=== PATIENT | male | born 1975 | race Caucasian/White ===

== ENCOUNTER 2016-11-05 07:50 | Day surgery (SDC) | payer OTHER ==
--- NOTE | 2016-10-28 17:49 | HP ---
CC: Dr. Medina at [facility] PREOPERATIVE HISTORY AND PHYSICAL: DATE OF ADMISSION: This patient is scheduled for same day surgery admission by Dr. Medina on 11/05/16. DATE OF PREOPERATIVE HISTORY AND PHYSICAL EXAM: 10/28/16. ATTENDING SURGEON: Dr. Steven Medina* (dictated by Quang Elizabeth NP). CHIEF COMPLAINT: Left inguinal hernia. HISTORY OF PRESENT ILLNESS: The patient is a 40-year-old male recently evaluated by Dr. Medina for a left inguinal hernia as well as an umbilical hernia. The patient reports that he has symptoms from Giardia 2 years ago, which led to colonoscopy and a diagnosis of diverticulosis as well. Recently, he had symptoms of pain in the left lower quadrant and a CAT scan of the abdomen was performed and he was diagnosed with 2 hernias; one in the left inguinal region and one in the umbilicus. He notes that he is generally very physically active, but he is avoiding exercise due to the pain in the left groin that is exacerbated by strenuous activity and even by walking upstairs. He denies any dysuria; he does have a history of irritable bowel syndrome and stools can be irregular, alternating between formed and loose and he is currently on a medication called Viberzi, which is an antispasmodic. He denies any blood or mucous in the stools. He denies any fevers or chills. He has a good appetite and has not noticed any weight loss. Dr. Medina examined the patient and reviewed the findings with him and has recommended laparoscopic left inguinal hernia repair with mesh and a simultaneous repair of the umbilical hernia. Dr. Medina described the nature of the surgical procedure the relevant risks, and benefits and the rationale for the procedure and today I reviewed the expected postoperative care and recovery. The patient has had a chance to ask questions and stated that he understands the information and is satisfied with the answers given to his questions. He will sign surgical consent on the day of surgery. PAST MEDICAL HISTORY: Significant for irritable bowel syndrome and diverticulosis; exercise-induced asthma, and multiple environmental allergies. PAST SURGICAL HISTORY: Repair of left Achilles tendon; right shoulder surgery for torn labrum. MEDICATIONS: 1. Viberzi 100 mg 1 tablet daily with food. 2. Escitalopram 20 mg 1 tablet daily at bedtime. 3. Nasonex 50 mcg per actuation 2 sprays in each nostril p.r.n. 4. ProAir inhaler 2 puffs every 4 hours p.r.n. 5. QVAR 80 mcg 2 puffs daily p.r.n. ALLERGIES: AMOXICILLIN, ERYTHROMYCIN, CECLOR, PEDIAZOLE and PENICILLIN, all cause hives and throat swelling. PREDNISONE cause hypertension. FAMILY HISTORY: Father alive at age 76 with pacemaker. Mother alive and well. No known family history of anesthesia complications, bleeding tendencies or clotting disorders. 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 He is active with exercising. REVIEW OF SYSTEMS: Constitutional: He denies any changes in his weight or denies any fever or chills. Cardiovascular: Denies chest pain, pressure, or palpitations. Respiratory: Denies shortness of breath or chronic cough. GI: He has a history of irritable bowel syndrome and diverticulosis and Giardia. Genitourinary: Denies any dysuria or history of kidney stones. He denies any previous anesthesia complications. He denies any bleeding tendencies and has never received a blood transfusion. He denies any history of deep vein thrombosis or pulmonary embolism. PHYSICAL EXAMINATION GENERAL SURVEY: The patient is a 40-year-old male, well developed, well nourished, in no acute distress. VITAL SIGNS: Height 70 inches, weight 205 pounds, body mass index 29.4. Blood pressure 114/78, pulse 78 and regular, respiratory rate 16, temperature 97.4 tympanic. HEENT: Benign. NECK: Supple. No cervical lymphadenopathy. No thyromegaly. BACK: No CVA tenderness. LUNGS: Breath sounds bilaterally clear and equal. HEART: Regular rate and rhythm. No murmurs or rubs appreciated. ABDOMEN: Active bowel sounds. No surgical scars. Soft and nondistended. Mildly tender in the left lower quadrant. No guarding or rebound tenderness. No obvious masses or organomegaly. 1 cm umbilical hernia without any tenderness. Inguinal exam as done by Dr. Medina revealed a reducible left inguinal hernia. No right inguinal hernia. GENITALIA: Exam is deferred. RECTAL: Exam is deferred. EXTREMITIES: Warm without edema or skin ulceration. NEUROLOGIC: Alert and oriented x3, steady gait. SKIN: Warm, dry, intact. IMPRESSION: 1. Left inguinal hernia. 2. Umbilical hernia. PLAN: Same day surgery admission to Dr. Medina' service on 11/05/16, for laparoscopic repair of left inguinal hernia and simultaneous repair of umbilical hernia. QUANG ELIZABETH, OVERHEAD WORKER [id number] #: [id number] MTDNilson
[~2016-11-05 07:50] MED LIST: Buffered Lidocaine 0.9% SYRIN* 5 ML/SYR SYRINGE INTRADERM ONE; Buffered Lidocaine 0.9% SYRIN* 5 ML/SYR SYRINGE ONE; Levofloxacin 750 MG IVPREMIX(* 750 MG/150 ML BAG ONE
[2016-11-05] MEDS ORDERED: Bupivacaine 0.5% W/EPI SDV* 10 ML VIAL INJ ONE (09:37)
[2016-11-05] MEDS ORDERED: Midazolam* 1 MG/ML 2 ML VIAL (2 MG) ONE (11:19)
[2016-11-05] MEDS ORDERED: Cisatracurium* 2 MG/ML MDV 5 ML ONE (11:19)
[2016-11-05] MEDS ORDERED: fentaNYL* 50 MCG/ML 2 ML VIAL (100 MCG VIAL) ONE ×2 (11:20→12:49)
[2016-11-05] MEDS ORDERED: Propofol* 10 MG/ML 20 ML BTL IV PUSH ONE (13:04)
[2016-11-05] MEDS ORDERED: Lidocaine 2% PF * 5 ML VIAL ONE (13:04)
[2016-11-05] MEDS ORDERED: Dexamethasone IV* 4 MG/ML 1 ML (4 MG) ONE (13:04)
[2016-11-05] MEDS ORDERED: Ondansetron INJ* 2 MG/ML VIAL ONE (13:04)
[2016-11-05] MEDS ORDERED: Succinylcholine* 20 MG/ML 10 ML VIAL ONE (13:04)
[2016-11-05] MEDS ORDERED: EPHEDrine (Pressors)* 50 MG/ML VIAL ONE ×2 (13:28→13:34)
[2016-11-05] MEDS ORDERED: Glycopyrrolate IV* 0.2 MG/ML 1 ML VIAL ONE (13:34)
[2016-11-05] MEDS ORDERED: Ketorolac INJ* 30 MG/ML 1 ML VIAL IV PRN (13:49)
[2016-11-05] MEDS ORDERED: fentaNYL* 50 MCG/ML 2 ML VIAL (100 MCG VIAL) IV PRN (13:49)
[2016-11-05] MEDS ORDERED: HYDROmorphone* 1 MG/ML 1 ML SYR IV PRN (13:49)
[2016-11-05] MEDS ORDERED: oxyCODONE/Acetamin 5/325 MG* TAB PO PRN (14:13)
[2016-11-05] MEDS ORDERED: Ketorolac INJ* 30 MG/ML 1 ML VIAL ONE (14:59)
[2016-11-05 16:34] VITALS: BP 126/83
--- NOTE | 2016-11-06 12:37 | OP ---
CC: Cas Teran MD * DATE OF OPERATION: 11/05/16 - [facility] DATE OF : 79 SURGEON: Steven Medina MD LACE WEAVER: EL Carrillo ANESTHESIOLOGIST: Dr. Tanner. ANESTHESIA: General endotracheal. PRE-OP DIAGNOSES: Left inguinal hernia and umbilical hernia. POST-OP DIAGNOSES: Left inguinal hernia and umbilical hernia. OPERATIVE PROCEDURE: Laparoscopic repair of left inguinal hernia with mesh and open repair of umbilical hernia. ESTIMATED BLOOD LOSS: Minimal. IV FLUIDS: Crystalloid. SPECIMEN: None. DRAINS: None. COMPLICATIONS: None. COUNTS: The instrument, needle, and sponge counts were correct. DESCRIPTION OF PROCEDURE: The patient was brought to the operating room and placed on the table supine. Sequential compression devices were placed on both lower extremities. General anesthesia was administered. A Gerard catheter was placed. He was positioned and padded appropriately and received appropriate intravenous antibiotics. Time-out was performed. Local anesthetic was infiltrated into the skin and subcutaneous tissues prior to making its incision. A curvilinear infraumbilical incision was created and subcutaneous tissues were divided and the anterior rectus abdominis fascia was identified to the left of midline and incised transversely. The underlying muscles retracted laterally and the preperitoneal balloon dissector was positioned down to the level of the pubic symphysis. It was insufflated under direct visualization and then removed and replaced with a 12 mm blunt port. Insufflation of the preperitoneal space was achieved to a pressure of 15 mmHg. Under direct visualization, two 5 mm trocars were placed in the lower midline. Dissection proceeded from the midline laterally identifying the pubis symphysis , Brandon's ligament, and inferior epigastric vessels which were preserved anteriorly. There was no direct inguinal hernia identified. There was a indirect inguinal hernia sac which was identified and this was elevated. Cord structures were freed from it. The sac was allowed to retract. Dissection proceeded laterally to the anterior superior iliac spine. After completing the dissection, the repair was performed with the Bard 3D Max large size mesh for left-sided repair. The mesh was placed into the preperitoneal space and positioned to cover the direct, indirect, and femoral spaces. It was secured with the CapSure tacker at the Brandon's ligament at the pubic tubercle and the mesh was held out laterally as the preperitoneal space was allowed to desufflate to assure that the mesh was properly positioned. The ports were then removed. The infraumbilical site was closed with 0 Polysorb in interrupted fashion. Next, the umbilical hernia was addressed. The umbilical stalk was dissected free from the anterior abdominal wall. A 1 cm hernia was identified and the fascial edges were cleaned. The closure was performed with a 0 Ti-Cron suture in interrupted fashion. Subsequently, a 3-0 Polysorb was used to reapproximate the umbilical stalk to the anterior abdominal wall and the skin incisions were closed with 4-0 Monocryl. The patient tolerated the procedure well, was extubated and transferred to Recovery in stable condition. [id number]/CPS #: [id number] NATE
== END 2016-11-05 16:37 | disposition home or self-care (01) ==
LOC: OR 07:50
PROVIDERS: ATTEND Surgery
DX: K40.90 Unilateral inguinal hernia, without obstruction or gangrene, not specified as recurrent (principal); K42.9 Umbilical hernia without obstruction or gangrene; J45.909 Unspecified asthma, uncomplicated; F41.8 Other specified anxiety disorders
CPT/HCPCS: C1776; C1781; J0330; J1100; J1885; J2250; J2405; J2704; J3010

== ENCOUNTER 2018-10-20 10:53 | Emergency (ER) | payer OTHER ==
--- NOTE | 2018-10-20 12:25 | ED ---
Complex/Multi-Sys Presentation - HPI Summary HPI Summary: This patient is a 42 year old M presenting to [facility] accompanied by parents with a chief complaint of sore throat since this morning. Pt reports silent reflux, congestion in nose, ear fullness, pain, cough, sore throat, swelling and white spots on back of throat. States he woke up feeling like his throat was swollen and he had SOB but that has improved over time. Also has L ear fullness. Pt denies fever. Pt took inhaler which did not alleviate symptoms. Per triage, the patient rates the pain 4/10 in severity, sharp, located in throat, worse w swallowing. - History Of Current Complaint Chief Complaint: EDThroatPain Time Seen by Provider: 10/20/18 12:10 Hx Obtained From: Patient Onset/Duration: Sudden Onset, Lasting Hours Timing: Constant, Hours Severity Currently: Moderate Severity Initially: Moderate Associated Signs And Symptoms: Positive: SOB, Cough, Other - Pos - Sore throat, swelling and white spots on back of throat, silent reflux, congestion in nose, ear fullness - Allergies/Home Medications Allergies/Adverse Reactions: Allergies Allergy/AdvReac Type Severity Reaction Status Date / Time amoxicillin Allergy Severe Hives/Diff. Verified 10/20/18 11:00 Breathing/I tching cefaclor [From [facility]] Allergy Severe Hives/Diff. Verified 10/20/18 11:00 Breathing/I tching erythromycin base Allergy Severe Hives/Diff. Verified 10/20/18 11:00 Breathing/I tching Penicillins Allergy Severe Hives/Diff. Verified 10/20/18 11:00 Breathing/I tching prednisone Allergy Intermediate Tachycardia Verified 10/20/18 11:00 Home Medications: Home Medications Albuterol HFA INHALER* [Ventolin HFA Inhaler*] 1 puff INH Q4H PRN 10/20/18 [ History Confirmed 10/20/18] Omeprazole CAP (NF) [Prilosec CAP* 20 MG] 20 mg PO DAILY 10/20/18 [History Confirmed 10/20/18] Vortioxetine (NF) [Trintellix (NF)] 10 mg PO DAILY 10/20/18 [History Confirmed 10/20/18] PMH/Surg Hx/FS Hx/Imm Hx Endocrine/Hematology History: Denies: Hx Diabetes Cardiovascular History: Denies: Hx Hypertension Respiratory History: Reports: Hx Asthma - sports-induced, has daily inhaler and prn inhaler GI History: Reports: Hx Irritable Bowel - hx of, stated in select visit hx, take daily medication, Other GI Disorders - diverticulosis, takes daily medication and diet modification History: Denies: Hx Renal Disease Musculoskeletal History: Reports: Hx Tendonitis - left achilles tendonitis, had repair Sensory History: Reports: Hx Contacts or Glasses - reading glasses Denies: Hx Hearing Aid Opthamlomology History: Reports: Hx Contacts or Glasses - reading glasses Psychiatric History: Reports: Hx Anxiety - controlled with medication, Hx Depression - controlled with medication - Surgical History Surgery Procedure, Year, and Place: achilles tendon L foot lengthened;. R shoulder to be repaired Hx Anesthesia Reactions: No Infectious Disease History: No Infectious Disease History: Denies: History Other Infectious Disease, Traveled Outside the in Last 30 Days - Family History Known Family History: Negative: Cardiac Disease, Hypertension, Diabetes - Social History Alcohol Use: None Hx Substance Use: No Substance Use Type: Reports: None Hx Tobacco Use: No Smoking Status (MU): Never Smoked Tobacco Review of Systems Negative: Fever Positive: Sore Throat, Ear Ache, Other - pos - nasal congestion Positive: Shortness Of Breath, Cough Positive: Other - pos - silent reflux All Other Systems Reviewed And Are Negative: Yes Physical Exam - Summary Physical Exam Summary: Constitutional: Well-developed, Well-nourished, Alert. (-) Distressed Skin: Warm, Dry HENT: Normocephalic; Atraumatic;Tympanic membranes bilaterally nml; Right sided cervical lymphadenopathy, erythema and swelling of bilateral tonsils with white exudates. Eyes: Conjunctiva normal Neck: Musculoskeletal ROM normal neck. (-) JVD, (-) Stridor, (-) Tracheal deviation Cardio: Rhythm regular, rate normal, Heart sounds normal; Intact distal pulses; The pedal pulses are 2+ and symmetric. Radial pulses are 2+ and symmetric. (-) Murmur Pulmonary/Chest wall: Effort normal. (-) Respiratory distress, (-) Wheezes, (-) Rales, clear lungs. Abd: Soft, (-) tenderness, (-) Distension, (-) Guarding, (-) Rebound Musculoskeletal: (-) Edema Lymph: (-) Cervical adenopathy Neuro: Alert, Oriented x3 Psych: Mood and affect Normal Triage Information Reviewed: Yes Vital Signs On Initial Exam: Initial Vitals Temp Pulse Resp BP Pulse Ox 98.3 F 76 16 139/102 97 10/20/18 10:56 10/20/18 10:56 10/20/18 10:56 10/20/18 10:56 10/20/18 10:56 Vital Signs Reviewed: Yes Diagnostics - Vital Signs Vital Signs Temp Pulse Resp BP Pulse Ox 10/20/18 10:56 98.3 F 76 16 139/102 97 - Laboratory Lab Statement: Any lab studies that have been ordered have been reviewed, and results considered in the medical decision making process. Complex Multi-Symp Course/Dx Course Of Treatment: 42 y/o male w sore throat and URI symptoms. - VSS NAD. PE with tonsilar erythema and cervical LAD. - Lungs CTAB and suspect intitial SOB 2/2 tonsillar hypertrophy when laying flat. - strep neg, suspect viral URI vs allergies. patient takes claritin. tolerating PO can take PRN pain meds - Diagnoses Provider Diagnoses: Sore throat, Ear fullness Discharge - Sign-Out/Discharge Documenting (check all that apply): Patient Departure - Discharge Patient Received Moderate/Deep Sedation with Procedure: No - Discharge Plan Condition: Stable Disposition: HOME Patient Education Materials: Pharyngitis (ED) Referrals: Sujey Vieira NP [Primary Care Provider] - 3 Days Additional Instructions: Follow up with PCP within 3 days. RETURN TO ED FOR NEW OR WORSENING SYMPTOMS, TROUBLE SWALLOWING OR BREATHING. - Billing Disposition and Condition Condition: STABLE Disposition: Home - Attestation Statements Document Initiated by Jonelle: Yes Documenting Scribe: Brittnee Cooney Provider For Whom Jonelle is Documenting (Include Credential): Dr. Raiza Lundberg MD Scribe Attestation: Brittnee Lutz scribed for Dr. Raiza Lundberg MD on 10/20/18 at 1544. Scribe Documentation Reviewed: Yes Provider Attestation: The documentation as recorded by the Brittnee conn accurately reflects the service I personally performed and the decisions made by me, Dr. Raiza Lundberg MD Status of Scribe Document: Viewed
[2018-10-20 12:31] LABS: Rapid Strep Molecular Negative (Negative)
[2018-10-20 13:12] VITALS: BP 138/97
== END 2018-10-20 13:11 | disposition home or self-care (01) ==
LOC: ED 10:53
DX: J02.9 Acute pharyngitis, unspecified (principal); H93.90 Unspecified disorder of ear, unspecified ear; K58.9 Irritable bowel syndrome, unspecified; Z88.1 Allergy status to other antibiotic agents; Z88.0 Allergy status to penicillin; Z88.8 Allergy status to other drugs, medicaments and biological substances; Z79.899 Other long term (current) drug therapy
CPT/HCPCS: 87651; 99281

== ENCOUNTER 2019-06-25 10:24 | Day surgery (SDC) | payer OTHER ==
[~2019-06-25 10:24] MED LIST changes: -Buffered Lidocaine 0.9% SYRIN* 5 ML/SYR SYRINGE INTRADERM ONE; -Buffered Lidocaine 0.9% SYRIN* 5 ML/SYR SYRINGE ONE; +Buffered Lidocaine 1% SYRIN* 1 ML/SYRINGE INTRADERM ONE; +Lactated Ringers 1000 ML Bag* 1,000 ML IV SCH; -Levofloxacin 750 MG IVPREMIX(* 750 MG/150 ML BAG ONE
[2019-06-25] MEDS ORDERED: Buffered Lidocaine 1% SYRIN* 1 ML/SYRINGE INTRADERM ONE (11:03)
[2019-06-25] MEDS ORDERED: fentaNYL* 50 MCG/ML 2 ML VIAL (100 MCG VIAL) ONE (12:43)
[2019-06-25] MEDS ORDERED: Midazolam* 1 MG/ML 2 ML VIAL (2 MG) ONE (12:44)
[2019-06-25] MEDS ORDERED: Dexamethasone IV* 4 MG/ML 1 ML (4 MG) ONE (13:24)
[2019-06-25] MEDS ORDERED: Ondansetron INJ* 2 MG/ML VIAL ONE (13:31)
[2019-06-25] MEDS ORDERED: Propofol* 10 MG/ML 20 ML BTL ONE (13:31)
[2019-06-25] MEDS ORDERED: HYDROmorphone INJ1* 1 MG/ML SYRINGE IV PRN (14:15)
[2019-06-25] MEDS ORDERED: Naloxone* 0.4 MG/ML 1 ML VIAL IV PRN (14:15)
[2019-06-25] MEDS ORDERED: HYDROmorphone INJ1* 1 MG/ML SYRINGE ONE (14:17)
[2019-06-25 14:38] VITALS: BP 159/107
--- NOTE | 2019-06-25 23:13 | OP ---
DATE OF OPERATION: 06/25/19 - [facility] DATE OF : 79 SURGEON: Marco A Dupree MD PRE-OP DIAGNOSIS: Hypertrophied tonsils with odynophagia. POST-OP DIAGNOSIS: Hypertrophied tonsils with odynophagia. OPERATIVE PROCEDURE: Tonsillectomy. INDICATIONS: This 43-year-old gentleman with markedly enlarged tonsil with significant odynophagia, chronic, elected for surgical therapy for concerns of neoplasm. DESCRIPTION OF PROCEDURE: The patient was taken to the operating room. General anesthetic was given. The patient was intubated. Tongue, mandible, and soft palate were retracted. Coblation dissection within the tonsillar plane was carried out on both sides. Once hemostasis was obtained, the patient awakened, extubated, and sent to the recovery room in stable condition. The specimens were sent for permanent section. [id number] #: [id number] MTDD
== END 2019-06-25 15:13 | disposition home or self-care (01) ==
LOC: OR 10:24
PROVIDERS: ATTEND Otolaryngology
DX: J35.1 Hypertrophy of tonsils (principal); R13.19 Other dysphagia; J31.0 Chronic rhinitis; J45.909 Unspecified asthma, uncomplicated; Z88.1 Allergy status to other antibiotic agents; Z88.0 Allergy status to penicillin; Z88.8 Allergy status to other drugs, medicaments and biological substances; Z79.51 Long term (current) use of inhaled steroids
CPT/HCPCS: 88304; J1100; J1170; J2250; J2405; J2704; J3010